=== PATIENT | female | born 1965 | race Caucasian/White ===

== ENCOUNTER → 2017-03-12 | Outpatient (CLI) | payer BC, MEDICARE ==
[~2017-03-12] MED LIST: ISOVUE-300 61% 50ML VIAL (Q9967) As Ordered; MIDAZOLAM INJ 2 MG/2 ML VIAL (J2250) As Ordered; fentaNYL 100 MCG/2 ML INJECTION (J3010) As Ordered
== END | disposition home or self-care (01) ==
LOC: M IRPRO 13:49
DX: T82.858A Stenosis of other vascular prosthetic devices, implants and grafts, initial encounter (principal); T82.838A Hemorrhage due to vascular prosthetic devices, implants and grafts, initial encounter; N18.9 Chronic kidney disease, unspecified; Z99.2 Dependence on renal dialysis
CPT/HCPCS: 36902

== ENCOUNTER → 2017-04-02 | Outpatient (CLI) | payer BC, MEDICARE | END | disposition home or self-care (01) | LOC: M IRPRO 07:03 | DX: T82.858A Stenosis of other vascular prosthetic devices, implants and grafts, initial encounter (principal); S40.851A Superficial foreign body of right upper arm, initial encounter; I12.0 Hypertensive chronic kidney disease with stage 5 chronic kidney disease or end stage renal disease; N18.6 End stage renal disease; Z99.2 Dependence on renal dialysis; Z45.2 Encounter for adjustment and management of vascular access device | CPT/HCPCS: 36902 ==

== ENCOUNTER 2017-04-03 06:38 | Emergency (ER) | payer BC, MEDICARE | END 2017-04-03 07:50 | disposition home or self-care (01) | LOC: M ED 06:38 | DX: T82.838A Hemorrhage due to vascular prosthetic devices, implants and grafts, initial encounter (principal); X58.XXXA Exposure to other specified factors, initial encounter; Y92.89 Other specified places as the place of occurrence of the external cause; N28.9 Disorder of kidney and ureter, unspecified; Z99.2 Dependence on renal dialysis; Z79.01 Long term (current) use of anticoagulants; Z88.8 Allergy status to other drugs, medicaments and biological substances | CPT/HCPCS: 99284 ==

== ENCOUNTER → 2017-06-09 | Outpatient (CLI) | payer BC, MEDICARE | END | disposition home or self-care (01) | LOC: M IRPRO 11:18 | DX: T82.858A Stenosis of other vascular prosthetic devices, implants and grafts, initial encounter (principal); N18.6 End stage renal disease; Z99.2 Dependence on renal dialysis | CPT/HCPCS: 36902 ==

== ENCOUNTER → 2017-06-23 | Outpatient (CLI) | payer BC, MEDICARE ==
[~2017-06-23] MED LIST changes: +ALTEPLASE 2 MG/2 ML VIAL (J2997 PER 1MG) As Ordered; +HEPARIN 1,000 UNITS/ML 10ML VIAL (FOR RADIOLOGY& DIALYSIS ONLY) As Ordered
== END | disposition home or self-care (01) ==
LOC: M IRPRO 07:43
DX: T82.868A Thrombosis due to vascular prosthetic devices, implants and grafts, initial encounter (principal); T82.858A Stenosis of other vascular prosthetic devices, implants and grafts, initial encounter; N18.6 End stage renal disease; Z99.2 Dependence on renal dialysis
CPT/HCPCS: 36906

== ENCOUNTER 2017-09-20 09:25 | Inpatient (IN) | payer BC, MEDICARE ==
[2017-09-20] MEDS: LISSAMINE GREEN OPHTH 1.5 MG STRIP OD (10:15)
[2017-09-20] MEDS: TETRACAINE 0.5% OPHTH SOLN 4ML OD (10:15)
[2017-09-20 10:42] LABS: BASO % 0.6 % (0.0-1.0); EOS % 1.3 % (0.0-3.0); HEMATOCRIT 34.8 % (36.0-47.0); HEMOGLOBIN 11.7 g/dl (12.0-15.5); IMMATURE GRANULOCYTE % 0.3 % (0-3.0); LYMPH # 0.8 10^3/uL (1.5-4.5); LYMPH % 26.5 % (24.0-44.0); MEAN CORPUSCULAR HEMOGLOBIN 34.5 pg (27.0-33.0); MEAN CORPUSCULAR HGB CONC 33.6 g/dl (32.0-36.5); MEAN CORPUSCULAR VOLUME 102.7 fl (80.0-96.0); MONO # 0.4 10^3/uL (0.0-0.8); MONO % 12.6 % (0.0-5.0); NEUTROPHILS # 1.9 10^3/uL (1.8-7.7); NEUTROPHILS % 58.7 % (36.0-66.0); PLATELET COUNT, AUTOMATED 168 10^3/uL (150-450); RED BLOOD COUNT 3.39 10^6/uL (4.00-5.40); RED CELL DISTRIBUTION WIDTH 12.8 % (11.5-14.5); WHITE BLOOD COUNT 3.2 10^3/uL (4.0-10.0)
[2017-09-20] MEDS ORDERED: ISOVUE-370 76% 100ML VIAL (Q9967) As Ordered (10:55)
[2017-09-20 10:59] LABS: ERYTHROCYTE SEDIMENTATION RATE 43 mm/hr (0-30)
[2017-09-20 11:33] LABS: LACTIC ACID SEPSIS PROTOCOL 0.7 MMOL/L (0.4-2.0)
[2017-09-20 11:33] LABS: ALBUMIN 3.3 GM/DL (3.2-5.2); ALKALINE PHOSPHATASE 84 U/L (45-117); ALT/SGPT 21 U/L (12-78); ANION GAP 11 MEQ/L (8-16); AST/SGOT 15 U/L (7-37); BILIRUBIN,DIRECT 0.1 MG/DL (0.0-0.2); BILIRUBIN,TOTAL 0.6 MG/DL (0.2-1.0); BLOOD UREA NITROGEN 52 MG/DL (7-18); C REACTIVE PROTEIN QUANTITATIV 0.69 MG/DL (0.00-0.30); CALCIUM LEVEL 8.5 MG/DL (8.5-10.1); CARBON DIOXIDE LEVEL 24 MEQ/L (21-32); CHLORIDE LEVEL 106 MEQ/L (98-107); GLOMERULAR FILTRATION RATE 8.2 (>51); GLUCOSE, FASTING 87 MG/DL (70-100); POTASSIUM SERUM 4.1 MEQ/L (3.5-5.1); SODIUM LEVEL 141 MEQ/L (136-145); TOTAL PROTEIN 6.6 GM/DL (6.4-8.2)
[2017-09-20] MEDS: ACETAMINOPHEN TAB 650MG DOSE (2X325MG) PO (12:55)
[2017-09-20] MEDS: methylPREDNISolone INJ 125 MG/2 ML VIAL (J2930) IV (13:47)
[2017-09-20] MEDS ORDERED: ONDANSETRON 4MG/2ML VIAL (J2405) IV (15:15)
[2017-09-20] MEDS ORDERED: ALBUTEROL 90 MCG/ACT 8GM HFA INHALER INH (15:30)
[2017-09-20] MEDS ORDERED: IPRATROPIUM 0.5MG/ALBUTEROL 2.5MG INH SOL UD 3ML (DUONEB)(J7620) NEB (15:45)
[2017-09-20] MEDS: ERYTHROMYCIN OPHTH OINT OD ×2 (16:21→21:56)
[2017-09-20] MEDS: WARFARIN SOD 5 MG TAB PO (17:00)
[2017-09-20] MEDS: LANTHANUM CARBONATE 500 MG CHEW TABLET PO (18:03)
[2017-09-20] MEDS: (RENVELA) SEVELAMER **CARBONate** 800 MG TAB PO (18:55)
[2017-09-20] MEDS: valACYclovir HCL 500 MG TAB PO (20:54)
[2017-09-21] MEDS: methylPREDNISolone INJ 125 MG/2 ML VIAL (J2930) IV ×2 (02:27→17:11)
[2017-09-21 06:27] LABS: HEMOGLOBIN 11.8 g/dl (12.0-15.5); MEAN CORPUSCULAR HGB CONC 32.8 g/dl (32.0-36.5); MEAN CORPUSCULAR VOLUME 103.7 fl (80.0-96.0); PLATELET COUNT, AUTOMATED 189 10^3/uL (150-450); RED BLOOD COUNT 3.47 10^6/uL (4.00-5.40); RED CELL DISTRIBUTION WIDTH 12.8 % (11.5-14.5); WHITE BLOOD COUNT 3.1 10^3/uL (4.0-10.0)
[2017-09-21] MEDS: LANTHANUM CARBONATE 500 MG CHEW TABLET PO ×3 (06:38→17:11)
[2017-09-21] MEDS: MONTELUKAST 10 MG TAB PO (06:38)
[2017-09-21] MEDS: MULTIVITAMINS/MINERALS THERAP 1 TAB PO (06:38)
[2017-09-21] MEDS: ERYTHROMYCIN OPHTH OINT OD ×3 (06:38→20:24)
[2017-09-21] MEDS: (RENVELA) SEVELAMER **CARBONate** 800 MG TAB PO ×3 (06:38→17:11)
[2017-09-21] MEDS: FERROUS SULFATE 325MG TAB PO (06:38)
[2017-09-21] MEDS: ACETAMINOPHEN TAB 650MG DOSE (2X325MG) PO (06:38)
[2017-09-21 06:44] LABS: INR 2.27; PROTHROMBIN TIME 25.5 SECONDS (12.1-14.4)
[2017-09-21 06:51] LABS: ANION GAP 13 MEQ/L (8-16); BLOOD UREA NITROGEN 67 MG/DL (7-18); CALCIUM LEVEL 8.2 MG/DL (8.5-10.1); CARBON DIOXIDE LEVEL 20 MEQ/L (21-32); CHLORIDE LEVEL 104 MEQ/L (98-107); CREATININE FOR GFR 6.38 MG/DL (0.55-1.30); GLOMERULAR FILTRATION RATE 7.3 (>51); GLUCOSE, FASTING 115 MG/DL (70-100); POTASSIUM SERUM 5.1 MEQ/L (3.5-5.1); SODIUM LEVEL 137 MEQ/L (136-145)
[2017-09-21] MEDS: PERCOCET 5MG/325MG TAB PO (08:02)
[2017-09-21] MEDS: GABAPENTIN 100 MG CAP PO (10:46)
[2017-09-21] MEDS: WARFARIN SOD 5 MG TAB PO (17:11)
[2017-09-21] MEDS: valACYclovir HCL 500 MG TAB PO (20:24)
[2017-09-22] MEDS: methylPREDNISolone INJ 125 MG/2 ML VIAL (J2930) IV (01:40)
[2017-09-22] MEDS: ACETAMINOPHEN TAB 650MG DOSE (2X325MG) PO (01:42)
[2017-09-22 06:32] LABS: HEMATOCRIT 33.9 % (36.0-47.0); HEMOGLOBIN 11.5 g/dl (12.0-15.5); MEAN CORPUSCULAR HEMOGLOBIN 34.3 pg (27.0-33.0); MEAN CORPUSCULAR HGB CONC 33.9 g/dl (32.0-36.5); MEAN CORPUSCULAR VOLUME 101.2 fl (80.0-96.0); PLATELET COUNT, AUTOMATED 193 10^3/uL (150-450); RED BLOOD COUNT 3.35 10^6/uL (4.00-5.40); WHITE BLOOD COUNT 4.7 10^3/uL (4.0-10.0)
[2017-09-22 06:47] LABS: ANION GAP 9 MEQ/L (8-16); BLOOD UREA NITROGEN 49 MG/DL (7-18); CALCIUM LEVEL 8.3 MG/DL (8.5-10.1); CARBON DIOXIDE LEVEL 28 MEQ/L (21-32); CHLORIDE LEVEL 103 MEQ/L (98-107); CREATININE FOR GFR 5.24 MG/DL (0.55-1.30); GLOMERULAR FILTRATION RATE 9.2 (>51); GLUCOSE, FASTING 139 MG/DL (70-100); POTASSIUM SERUM 4.4 MEQ/L (3.5-5.1); SODIUM LEVEL 140 MEQ/L (136-145)
[2017-09-22 06:52] LABS: INR 2.37; PROTHROMBIN TIME 26.3 SECONDS (12.1-14.4)
[2017-09-22] MEDS: LANTHANUM CARBONATE 500 MG CHEW TABLET PO ×2 (08:40→13:02)
[2017-09-22] MEDS: FERROUS SULFATE 325MG TAB PO (08:40)
[2017-09-22] MEDS: (RENVELA) SEVELAMER **CARBONate** 800 MG TAB PO ×2 (08:40→13:02)
[2017-09-22] MEDS: MULTIVITAMINS/MINERALS THERAP 1 TAB PO (08:41)
[2017-09-22] MEDS: ERYTHROMYCIN OPHTH OINT OD (08:41)
[2017-09-22] MEDS: GABAPENTIN 100 MG CAP PO (08:41)
[2017-09-22] MEDS: MONTELUKAST 10 MG TAB PO (08:41)
[2017-09-22] MEDS ORDERED: ISOVUE-300 61% 50ML VIAL (Q9967) (10:58)
[2017-09-22] MEDS ORDERED: WARFARIN SOD 2.5 MG TAB PO (17:00)
== END 2017-09-22 14:05 | disposition home or self-care (01) | DRG 80 ==
LOC: M ED 09:25 → M ED INP 15:13 → M MSPAV 17:29
PROC: 5A1D70Z Performance of Urinary Filtration, Intermittent, Less than 6 Hours Per Day (ICD-10-PCS; principal; 2017-09-21)
PROC: B31H1ZZ Fluoroscopy of Right Upper Extremity Arteries using Low Osmolar Contrast (ICD-10-PCS; 2017-09-22)
DX: B02.30 Zoster ocular disease, unspecified (principal); M31.31 Wegener's granulomatosis with renal involvement; N25.81 Secondary hyperparathyroidism of renal origin; N18.6 End stage renal disease; J45.909 Unspecified asthma, uncomplicated; R01.1 Cardiac murmur, unspecified; T45.515A Adverse effect of anticoagulants, initial encounter; D63.1 Anemia in chronic kidney disease; D50.9 Iron deficiency anemia, unspecified; Z99.2 Dependence on renal dialysis; Z95.828 Presence of other vascular implants and grafts; Z79.01 Long term (current) use of anticoagulants; Z79.51 Long term (current) use of inhaled steroids; Z79.899 Other long term (current) drug therapy; Z91.040 Latex allergy status; Z88.5 Allergy status to narcotic agent; Z90.710 Acquired absence of both cervix and uterus

== ENCOUNTER → 2017-09-22 | Outpatient (CLI) | payer BC, MEDICARE ==
[~2017-09-22] MED LIST changes: -ALTEPLASE 2 MG/2 ML VIAL (J2997 PER 1MG) As Ordered; -HEPARIN 1,000 UNITS/ML 10ML VIAL (FOR RADIOLOGY& DIALYSIS ONLY) As Ordered; -MIDAZOLAM INJ 2 MG/2 ML VIAL (J2250) As Ordered; -fentaNYL 100 MCG/2 ML INJECTION (J3010) As Ordered
== END ==
LOC: M IRPRO 08:30
DX: Z53.8 Procedure and treatment not carried out for other reasons (principal)

== ENCOUNTER → 2017-12-30 | Outpatient (CLI) | payer BC, MEDICARE ==
[~2017-12-30] MED LIST changes: +LIDOCAINE 2% MDV 20 ML VIAL As Ordered; +MIDAZOLAM INJ 2 MG/2 ML VIAL (J2250) As Ordered; +fentaNYL 100 MCG/2 ML INJECTION (J3010) As Ordered
== END | disposition home or self-care (01) ==
LOC: M IRPRO 09:00
DX: T82.858A Stenosis of other vascular prosthetic devices, implants and grafts, initial encounter (principal); N18.6 End stage renal disease
CPT/HCPCS: 36902

== ENCOUNTER → 2018-04-01 | Outpatient (CLI) | payer BC, MEDICARE ==
[~2018-04-01] MED LIST changes: +ACYC800T PO; +ADV250INH INH; +BIMA01SOL OU; +COUM1TAB17 PO; +COUM2.5T17 PO; +DIAL800T PO; +ERYT5OPO OD; +FOSR1000 PO; +GABA-1171 PO; +IRON27TA2 PO; +IRON65TA PO; -ISOVUE-300 61% 50ML VIAL (Q9967) As Ordered; +ISOVUE-300 61% 50ML VIAL (Q9967) As Ordered ONE; -LIDOCAINE 2% MDV 20 ML VIAL As Ordered; +LIDOCAINE 2% MDV 20 ML VIAL As Ordered ONE; -MIDAZOLAM INJ 2 MG/2 ML VIAL (J2250) As Ordered; +MIDAZOLAM INJ 2 MG/2 ML VIAL (J2250) As Ordered ONE; +PRED10TA2 PO; +RENV2TAB PO; +SING10TA32 PO; +VALA500T5 PO; +VENTAER INH; -fentaNYL 100 MCG/2 ML INJECTION (J3010) As Ordered; +fentaNYL 100 MCG/2 ML INJECTION (J3010) As Ordered ONE
--- NOTE | 2018-04-28 10:41 | REPIR ---
DATE OF PROCEDURE: 04/01/2018 ATTENDING PHYSICIAN: Marla Salter MD ASSISTANTS: Uzair Mccoy and Conchita Huang PREOPERATIVE DIAGNOSES: End-stage renal disease, dysfunctional right brachial artery to axillary vein arteriovenous graft. POSTOPERATIVE DIAGNOSES: End-stage renal disease, dysfunctional right brachial artery to axillary vein arteriovenous graft. PROCEDURES: Right brachial artery to axillary vein arteriovenous graft fistulogram, retrograde right brachial artery angiogram, right brachial artery to axillary vein arteriovenous graft angioplasty with 8 x 200 balloon, right axillary vein angioplasty with 8 x 20 balloon. INDICATION: The patient is a 53-year-old female with end-stage renal disease who underwent creation of a right brachial artery to axillary vein arteriovenous graft which has had difficulty with maintaining patency and recurrent stenosis requiring angioplasty and stenting of the axillary vein. The patient now follows up with pulsatility within the arteriovenous graft and requires an evaluation. The patient will undergo a fistulogram with possible angioplasty, stent, and/or atherectomy. Risks, benefits, and alternative options were discussed with the patient. ANESTHESIA: Local with sedation with 1 mg of Versed, 50 mcg of fentanyl, and 2 mL of 2% lidocaine. FLUORO TIME: 0.6 minutes. CONTRAST: 6 mL of Isovue 300. HEPARIN: None. COMPLICATIONS: None. DRAINS: None. SPECIMENS: None. IMPLANTS: None. DESCRIPTION OF PROCEDURE: The patient was taken to the angiography suite, placed supine on the angiography room table, and the right upper extremity was prepped and draped in a standard surgical fashion. The arteriovenous graft was cannulated with a micropuncture needle after anesthetizing the overlying skin with 2% lidocaine. A micropuncture wire was advanced through the micropuncture needle which was upsized to a micropuncture sheath. A Bentson wire was advanced through the micropuncture sheath which was upsized to a 6-Australian sheath. A fistulogram was performed showing stenosis in the graft to axillary vein anastomosis, as well as along the course of the axillary vein. The axillary vein and the graft were angioplastied with an 8 x 200 balloon. A retrograde brachial artery angiogram was performed during inflation of the balloon showing no intervention required proximally, at the arterial to graft anastomosis. A completion fistulogram was performed after angioplasty with the 8 x 200 balloon showing resolution of the stenosis, and there was also hindu of a thrill to the fistula. Catheters and wires were removed. The sheath was removed, and a 2-0 Prolene suture was placed at the puncture site for hemostasis. Dressings were then applied. The patient tolerated the procedure well. All instrument, sponge, and needle counts were correct at the end the case. There were no complications. Dr. Salter was present for and directed the entire case. The patient was transferred to the holding area and subsequently discharged in stable condition. The arteriovenous graft is stable for use for hemodialysis access.
== END | disposition home or self-care (01) ==
LOC: M IRPRO 07:54
PROVIDERS: ATTEND Surgery Vascular Surgery
DX: T82.858A Stenosis of other vascular prosthetic devices, implants and grafts, initial encounter (principal); N18.6 End stage renal disease; Z99.2 Dependence on renal dialysis
CPT/HCPCS: 36902; C1725; C1769; C1894; J2250; J3010; Q9967

== ENCOUNTER → 2018-06-22 | Outpatient (CLI) | payer BC, MEDICARE ==
[~2018-06-22] MED LIST changes: +BUPIVACAINE HCL 0.5% 10 ML VIAL As Ordered ONE; +ERYT1OIN26 OD; -ERYT5OPO OD; +ISOVUE-300 61% 100ML VIAL (Q9967) As Ordered ONE; -ISOVUE-300 61% 50ML VIAL (Q9967) As Ordered ONE; +diphenhydrAMINE INJ 50MG/ML VIAL (J1200) As Ordered ONE
--- NOTE | 2018-07-07 10:37 | REPIR ---
DATE OF PROCEDURE: 06/22/2018 PREOPERATIVE DIAGNOSES: End-stage renal disease, dysfunctional right brachial artery to axillary vein arteriovenous graft. POSTOPERATIVE DIAGNOSES: End-stage renal disease, dysfunctional right brachial artery to axillary vein arteriovenous graft. PROCEDURE: Right brachial artery to axillary vein arteriovenous graft fistulogram, right graft and axillary vein angioplasty with 8 x 100 balloon. SURGEON: Dr. Marla Salter. LAUNDRY MARKER SUPERVISOR: Ritu Hughes and Conchita Huang ANESTHESIA: Local with sedation. FLUORO TIME: 0.5 minutes. CONTRAST: 144 mL COMPLICATIONS: None. DRAINS: None. SPECIMENS: None IMPLANTS: None. INDICATION: The patient is a 53-year-old female who dialyzes through a right arm AV graft which has had difficulty with occlusion as well as high grade stenosis in the graft to axillary vein anastomosis as well as in the axillary vein. The patient will undergo a fistulogram with possible angioplasty, stent and/or atherectomy. Risks, benefits and alternative options were discussed with the patient. DESCRIPTION OF PROCEDURE: The patient was taken to the angiography suite, placed supine on the angiography room table and the right upper extremity was prepped and draped in a standard surgical fashion. The fistula was cannulated and a fistulogram performed showing high grade stenosis in the graft to axillary vein anastomosis as well as in the axillary vein subclavian vein junction. The graft in the subclavian vein were angioplasty with an 8 x 100 balloon. A completion fistulogram showed resolution of the stenosis with excellent flow through the graft into the central venous system. No residual stenosis remaining. Catheters and wires were removed. The sheath was removed and a #2-0 Prolene suture was placed at the puncture site for hemostasis. Dressings then applied. The patient tolerated procedure well. All instrument, sponge and needle counts were correct at the end of the case. There were no complications. Dr. Salter was present for and directed the entire case. The patient was transferred to the holding area and subsequent discharged in stable condition.
== END | disposition home or self-care (01) ==
LOC: M IRPRO 09:19
PROVIDERS: ATTEND Surgery Vascular Surgery
DX: T82.858A Stenosis of other vascular prosthetic devices, implants and grafts, initial encounter (principal); N18.6 End stage renal disease; Z99.2 Dependence on renal dialysis
CPT/HCPCS: 36902; 36907; C1725; C1769; C1894; J1200; J2250; J3010; Q9967

== ENCOUNTER → 2018-09-21 | Outpatient (CLI) | payer BC, MEDICARE ==
[~2018-09-21] MED LIST changes: -ISOVUE-300 61% 100ML VIAL (Q9967) As Ordered ONE; +ISOVUE-300 61% 50ML VIAL (Q9967) As Ordered ONE; +WARF-18 PO
[2018-09-21 10:31] VITALS: BP_DIAS 63
--- NOTE | 2018-10-14 10:39 | REPIR ---
DATE OF PROCEDURE: 09/21/2018 ATTENDING SURGEON: Dr. Marla Salter BATCH MIXING TRUCK DRIVER: Ritu Hughes and Gaetano Mccoy PREOPERATIVE DIAGNOSIS: End-stage renal disease, dysfunctional right brachial artery to axillary vein arteriovenous graft. POSTOPERATIVE DIAGNOSIS: End-stage renal disease, dysfunctional right brachial artery to axillary vein arteriovenous graft. PROCEDURE: Right brachial artery to axillary vein arteriovenous fistulogram, retrograde right brachial artery angiogram, right brachial artery to axillary vein arteriovenous graft angioplasty with 8x200 balloon, right axillary vein angioplasty with 8x200 balloon. INDICATION: The patient is a 53-year-old female who underwent creation of a right brachial artery to axillary vein arteriovenous graft which has had difficulty with multiple episodes of thrombosis requiring thrombolysis and subsequent angioplasty and stenting of the axillary vein. The patient now follows up with pulsatility within the arteriovenous graft as well as excessive bleeding on decannulation. The patient will undergo a fistulogram with possible angioplasty stent and/or atherectomy. ANESTHESIA: Local with sedation with 2 mg of Versed, 50 mcg fentanyl and 3 mL of 2% lidocaine mixed with 0.5% Marcaine, Benadryl 50 mg. FLUORO TIME: 0.2 minutes. CONTRAST: 2 mL. SEDATION TIME: 10:01 a.m. to 10:17 a.m. for a total of 16 minutes. COMPLICATIONS: None. DRAINS: None. SPECIMENS: None. IMPLANTS: None. DESCRIPTION OF PROCEDURE: The patient was taken to the angiography suite, placed supine on the angiography table and then prepped and draped in a standard surgical fashion. The right brachial artery to axillary vein arteriovenous graft was cannulated with a micropuncture needle after anesthetizing the overlying skin and subcutaneous tissue was local anesthesia. A fistulogram was performed showing high grade stenosis in the axillary vein proximal to the previously stented region. There was also stenosis at the graft and axillary vein anastomosis. Both these were angioplastied with 8x200 balloon. A completion fistulogram showed resolution of the stenosis with mandaen of a thrill to the arteriovenous graft. A retrograde right brachial artery angiogram was performed during inflation of the 8x200 balloon showing the graft to be patent to the brachial artery. There was no stenosis at the graft and brachial artery anastomosis and there was good flow in the brachial artery proximal and distal to the graft and brachial artery anastomosis. Catheters and wires were removed. The sheath was removed and a 2-0 Prolene suture was placed at the puncture site for hemostasis. Dressings were then applied. The patient tolerated the procedure well. All instrument, sponge and needle counts were correct at the end the case. There were no complications. Dr. Salter was present for and directed the entire case. The patient was transferred to the holding area and subsequently discharged in stable condition once a the 2-0 Prolene suture was removed and good hemostasis was noted.
== END ==
LOC: M IRPRO 09:11
PROVIDERS: ATTEND Surgery Vascular Surgery
DX: N18.6 End stage renal disease (principal); T82.898A Other specified complication of vascular prosthetic devices, implants and grafts, initial encounter; J45.909 Unspecified asthma, uncomplicated; D50.9 Iron deficiency anemia, unspecified; H40.9 Unspecified glaucoma; X58.XXXA Exposure to other specified factors, initial encounter; Y93.9 Activity, unspecified; Y92.9 Unspecified place or not applicable; Y99.9 Unspecified external cause status
CPT/HCPCS: 36902; 36907; 99152; 99153; C1725; C1769; C1894; J1200; J2250; J3010; Q9967

== ENCOUNTER → 2018-12-31 | Outpatient (CLI) | payer BC, MEDICARE ==
[~2018-12-31] MED LIST changes: -BUPIVACAINE HCL 0.5% 10 ML VIAL As Ordered ONE; +LIDOCAINE 1% MDV 20ML VIAL As Ordered ONE; -LIDOCAINE 2% MDV 20 ML VIAL As Ordered ONE; -diphenhydrAMINE INJ 50MG/ML VIAL (J1200) As Ordered ONE
--- NOTE | 2018-12-31 14:37 | ROOPDOC ---
[facility] Report Of Operation Report of Operation DATE OF PROCEDURE: 12/31/18 PREPROCEDURE DIAGNOSES: End-stage renal disease on hemodialysis with poor venous flows, pulsatility, and increased bleeding times and infiltrations right upper extremity brachial axillary graft POSTPROCEDURE DIAGNOSES: Same PROCEDURE: 1. Right upper extremity fistulogram and central venogram 2. Angioplasty of the brachial axillary graft and axillary vein with 8 x 200 [place] balloon and 8 by 20 cutting balloon 3. Completion venogram SURGEON: Xavier Colin MD ANESTHESIA: Local anesthesia 10 mL lidocaine. Monitored intravenous conscious sedation was a electrical systems design engineer by Dr. Colin. The patient was independently monitored by a registered nurse assigned to the Department of radiology is automated blood pressure, EKG, and pulse oximetry. The detailed conscious sedation record is probably housed in the hospital information system. The following is a brief sedation record: Start time 13:12,. Time 13:54, Versed 1 mg, fentanyl 75 g. INDICATION FOR PROCEDURE: This is a very pleasant 53-year-old patient with end- stage renal disease on hemodialysis with a right upper extremity AV graft with poor venous flows, pulsatility, increased bleeding times and occasional infiltrations after dialysis. On exam in clinic, she had some focal areas of stenosis noted on ultrasound and pulsatility and some bruising from recent access. We discussed the risks benefits and alternatives to a fistulogram with potential intervention and she was agreeable to proceed. She is hopeful that her sister we imagine she'll be able to get a kidney transplant soon which will be wonderful, but we will try to keep her graft working until then. The patient takes Coumadin due to frequent graft thrombosis so we are also worried about progressive stenosis leading to graft thrombosis and we'll try to get things opened up so she's got better venous outflow and less chance of clotting the graft. She is agreeable to this plan and informed consent was obtained. INTERPRETATION: 1. There is good inflow into the graft is patent in the proximal third, but the distal two thirds have focal areas of stenosis and a previous please stent is also stenosis. The outflow in the axillary vein has a 90% stenosis and distal to that the outflow through to the central system is widely patent. 2. After angioplasty with a by 20 cutting balloon and 8 x 200 [place] balloon, there was widely patent inflow through the AV fistula with less than 10% residual stenosis in any of the focal areas. REPORT OF OPERATION: The patient was brought to the angiographic suite in stable condition and placed supine on the fluoroscopic table. Her right upper extremity was prepped and draped in sterile fashion. A timeout was performed. Local anesth esia was administered to the skin and subcutaneous tissue over the graft proximal to the AV anastomosis and a microneedle was used to access the graft and a wire was passed through this access under fluoroscopic guidance. A micro- sheath was placed and Glidewire was advanced through this into the central system under fluoroscopic guidance. Exchanged the sheath for 6 Cam[place]onian sheath wh ich was flushed with saline. A fistulogram and central venogram were performed. Please see above for interpretation. Next, we advanced an 8 x 200 [place] balloon across the focal areas of stenosis in the graft and the axillary vein. It required a fairly high atmospheric pressure of 14 to open areas of stenosis, and then the balloon was left inflated for 2 minutes at 4 nikhil. Following this, there is still a significant tight stenosis in the axillary vein and within the graft. We exchanged the sheath over the wire for a 7 Cam[place]onian sheath and flushed the sheath was saline. We exchanged the wire for V 18 wire crossed to the central system under fluoroscopic guidance. We advanced an 8 x 20 cutting balloon and used this balloon to angioplasty the areas of residual resistant stenosis. We then replaced the 8 x 200 [place] balloon and did a three-minute inflations at 4 nikhil. Following this, the graft in the outflow were widely patent with less than 10% residual stenosis. There was an excellent thrill and all pulsatility had resolved. The patient tolerated this very well. A stitch was placed at the sheath site and secured with Steri-Strips and pressure was held for 10 minutes for good hemostasis. The patient was taken to recovery in stable condition. ESTIMATED BLOOD LOSS: Approximately 5 mL. COMPLICATIONS: None. PLAN: It is okay to use the AV graft for dialysis. Continue Coumadin. We will see her back in a couple months to check her graft and see how she is doing. XAVIER COLIN MD Dec 31, 2018 14:37
[2018-12-31 14:52] VITALS: BP 116/56
== END ==
LOC: M IRPRO 11:41
PROVIDERS: ATTEND Surgery Vascular Surgery
DX: T82.898A Other specified complication of vascular prosthetic devices, implants and grafts, initial encounter (principal); N18.6 End stage renal disease; X58.XXXA Exposure to other specified factors, initial encounter; Y93.9 Activity, unspecified; Y92.9 Unspecified place or not applicable; Y99.9 Unspecified external cause status
CPT/HCPCS: 36902; 99152; 99153; C1725; C1769; C1894; J2250; J3010; Q9967

== ENCOUNTER → 2019-07-12 | Outpatient (CLI) | payer MEDICARE, BC ==
[~2019-07-12] MED LIST changes: +ALTEPLASE 2MG/2ML VIAL As Ordered ONE; +APIXABAN 2.5 MG TAB (ELIQUIS) PO ONE; +ELIQ2.5T PO; -ERYT1OIN26 OD; +ERYT5OIN25 OD; -ISOVUE-300 61% 50ML VIAL (Q9967) As Ordered ONE; +ISOVUE-300 61% 50ML VIAL As Ordered ONE; -MIDAZOLAM INJ 2 MG/2 ML VIAL (J2250) As Ordered ONE; +MIDAZOLAM INJ 2MG/2ML VIAL (J2250 PER 1MG) As Ordered ONE
--- NOTE | 2019-07-12 15:13 | ROOPDOC ---
[facility] Report Of Operation Report of Operation DATE OF PROCEDURE: 07/12/19 PREPROCEDURE DIAGNOSES: End-stage renal disease with poorly functioning right upper extremity brachial axillary AV graft POSTPROCEDURE DIAGNOSES: Same PROCEDURE: 1. Ultrasound-guided access right brachial axillary graft 2. Right upper extremity fistulogram and central venogram 3. Angioplasty right brachial axillary AV graft and central veins with 8 x 20 cutting balloon and 8 x 200 [place] balloon 4. Attempted Declot left axillary vein with 8 mg tPA and 6 x 40 and 8 x 40 [place] balloons 5. Repeat angioplasty right brachial axillary AV graft and axillary and subclavian veins 6. Completion venogram SURGEON: Xavier Colin MD ANESTHESIA: Local anesthesia with 2 mL lidocaine. Moderate intravenous conscious sedation was supervised by Dr. Colin. The patient was independently monitor by registered nurse assigned to the Department of radiology using automated blood pressure, EKG, and pulse oximetry. Detailed sedation record is permanently stored in the hospital information system. The following is the brief sedation record: Start time 13:11, stop time 14:41, heparin 5000 units IV, tPA 8 mg. CONTRAST: 92 mL Isovue-300 INDICATION FOR PROCEDURE: This is a very pleasant 54-year-old patient with end- stage renal disease currently dialyzing with an AV graft, brachial axillary, pl aced an outside institution. The patient has had frequent restenosis within the graft and at the distal venous anastomosis, as well as in her outflow veins that are required frequent interventions in the past. She has had multiple angioplasties and stenting within her graft in the past by other providers. We last saw her almost 6 months ago for angioplasty to improve her graft flow and outflow. She did well after this, but now returns with increased venous pressures, pulsatility is, and difficulty with access. Risks benefits and alternatives to a fistulogram and attempted intervention were explained to the patient and she is agreeable to proceed. Informed consent was obtained. INTERPRETATION: 1. On ultrasound the AV anastomosis is widely patent with no stenosis in good inflow. 2. The AV graft is heavily stenotic and ectatic, with a stent in the midportion over the biceps that has heavy in-stent restenosis, and just distal to this there is a 90% focal stenosis in the graft. Other aspects of the graft had betw een 20 and 80% stenosis throughout. There is some filling outside the main lumen of the vein just proximal to the anastomosis, proximal to the stent, that may be flow into a valve versus a small chronic pseudoaneurysm. No extraluminal flow is noted. The distal anastomosis is irregular but patent with about 40% stenosis. The axillary vein and subclavian vein has some irregularity to the lumen with a widely patent superior vena cava. It appears that there may be thrombus or luminal irregularity at the venous anastomosis and the axillary vein and subclavian vein, as contrast hangs up in the graft during injection to visualize the central veins. We are then able to flush the contrast through with heparinized saline flush, but it takes a bit of force. This suggests her outflow may have partial thrombosis, may have venous irregularities obstructing flow, but it is unclear from the imaging which it is. 3. After angioplasty with an 8 x 20 cutting balloon, there is marked improvement inflow through the graft. 4. After angioplasty with an 8 x 200 [place] balloon along the entire graft, the outflow tract, the axillary and subclavian veins, and into the SVC, we have a marked improvement inflow through the graft as seen after the cutting balloon, but we still have contrast hanging up in the fistula itself. There is no waist on the balloon with angioplasty of the axillary subclavian veins or the venous anastomosis. 5. After treating that it outflow with 8 mg of TPA and pushing a 6 x 40 and then an 8 x 40 balloon through the outflow to the central system, we do not see improvement in outflow. The contrast still hangs up in the graft and does not easily flow to the central system. However, when we flushed with heparinized saline, the contrast rapidly flows into the central system. 6. At case completion, I am still unsure of the cause of outflow limitation, but I suspect it is luminal irregularity of the vein. Over, it does not seem to be stenosis and does not respond to balloon angioplasty. REPORT OF OPERATION: Patient was brought to the angiographic suite in stable condition. Her right upper extremity was prepped and draped in a sterile fashion. A timeout was performed. Local anesthesia was administered to skin and subcutaneous tissue over the brachial axillary graft near the arterial anastomosis. The AV anastomosis was examined with ultrasound and found to be widely patent. We accessed the graft near the AV anastomosis with a microneedle. A wire was passed through this access and the needle was removed and a 4 Pashto sheath was placed and flushed with saline. Through this access we performed a fistulogram and central venogram. Please interpretation above. A Glidewire was advanced into the SVC under fluoroscopic guidance. We exchanged sheath for 7 Pashto sheath and flushed the sheath with saline. We then removed the Glidewire and placed in 018 advantage Glidewire and over this an 8 x 20 cutting balloon. We angioplastied the length of the graft, and distal to the stent, and the axillary anastomosis. Following this, there was significant improvement inflow through the AV graft in the axillary vein. There was still contrasting up in the graft itself. We then exchange the wire for and 035 Glidewire and advanced in 8 x 200 [place] balloon first across the graft, then across the axillary subclavian veins into the central system. Three-minute inflations were performed. Following this, there is no significant focal residual stenosis noted, but there was still 28-30% diffuse stenosis within the graft, and still contrast tongue up in the graft and not easily traversing to the central system. It was unclear on imaging exactly what was causing this. We were able to flush the contrast with heparinized saline. I try to repeat angioplasty, but little to no difference was noted. Administered 4 mg of TPA and push to 6 x 40 balloon across the axillary and subclavian veins, but no significant difference was noted. We administered another 4 mg of TPA in the area just proximal to the venous anastomosis in the axillary and subclavian vein and then pushed in 8 x 40 balloon over the wire through the area to the central system in case there is any thrombus present. The balloon past very easily without obstruction, but still we did not have significant outflow through the vein. This was very frustrating. We could not identify the source of flow limitation. There did not appear to be any stenosis along the outflow into the superior vena cava, nor into the right atrium. After attempting another angioplasty with 8 x 200 [place] balloon for three-minute inflations, we felt we had given as best of an effort as we could to improve her outflow inflow through the graft. At this point, I felt further intervention would not be fruitful. Local anesthesia was administered around the sheath and a Prolene suture was placed in a [id number] pattern around the sheath and the sheath was removed. Pressure was held for 15 minutes but the patient was still having bleeding. Her graft was pulsatile. Therefore, I placed a different pursestring suture around the access site and removed the Prolene. The pursestring suture was Monocryl and is absorbable. We then held pressure for an another 5 minutes and there was much better hemostasis with no active bleeding. At this point, I checked her arm again, and her graft had a thrill. Perhaps there was some component of spasm, although I did not visualize spasm on her fistulograms. Nevertheless, I was glad to feel a thrill. It is my hope that the graft is salvageable. Sterile dressings were applied and the patient was taken to recovery in stable condition. She tolerated the sedation in the procedure well. ESTIMATED BLOOD LOSS: Approximately 5 mL. COMPLICATIONS: None. PLAN: The patient will go to dialysis tomorrow morning. I've asked her to come back to interventional radiology if she has any problem running with her graft. Unfortunately, I do not have an option to further improve her graft. We did extensive work today and still did not see considerable improvement in outflow. If the graft is not working well, we would like to place a PermCath tomorrow morning and then we will work her up for new access. She will need a vein mapping of the left upper extremity in the right upper extremity. If her graft is working well enough for dialysis, we can hold off on this, but I do think she will need a new access in the near future regardless. Also, the patient's Coumadin is consistently subtherapeutic, and I like to switch her to a renally dosed eliquis at 2.5 mg twice a day. I think this will provide her a more consistent anticoagulation. If any component of outflow is due to thrombus, this will help. It will also better prevent thrombosis of this AV graft, or a new AV graft is been new access is needed. She is agreeable to this plan. We appreciate the opportunity to participate in the care of this patient XAVIER COLIN MD July 12, 2019 15:13
[2019-07-12 16:02] VITALS: BP 155/73
== END ==
LOC: M IRPRO 11:42
PROVIDERS: ATTEND Surgery Vascular Surgery
DX: T82.590A Other mechanical complication of surgically created arteriovenous fistula, initial encounter (principal); N18.6 End stage renal disease; I12.9 Hypertensive chronic kidney disease with stage 1 through stage 4 chronic kidney disease, or unspecified chronic kidney disease; N18.9 Chronic kidney disease, unspecified; J45.909 Unspecified asthma, uncomplicated; X58.XXXA Exposure to other specified factors, initial encounter; Z79.01 Long term (current) use of anticoagulants; Z79.899 Other long term (current) drug therapy; Z88.5 Allergy status to narcotic agent; Z91.040 Latex allergy status; Z99.2 Dependence on renal dialysis
CPT/HCPCS: 36905; 36907; 99152; 99153; C1725; C1729; C1769; C1887; C1894; J1644; J2250; J2997; J3010; Q9967

== ENCOUNTER → 2019-09-08 | Outpatient (CLI) | payer MEDICARE, BC ==
[~2019-09-08] MED LIST changes: -ALTEPLASE 2MG/2ML VIAL As Ordered ONE; -APIXABAN 2.5 MG TAB (ELIQUIS) PO ONE; -ISOVUE-300 61% 50ML VIAL As Ordered ONE; -LIDOCAINE 1% MDV 20ML VIAL As Ordered ONE; -MIDAZOLAM INJ 2MG/2ML VIAL (J2250 PER 1MG) As Ordered ONE; -fentaNYL 100 MCG/2 ML INJECTION (J3010) As Ordered ONE
--- NOTE | 2019-09-08 23:53 | REP ---
BILATERAL UPPER EXTREMITY DUPLEX DOPPLER ARTERIAL AND VENOUS ULTRASOUND FOR AV FISTULA MAPPING: Real-time ultrasound evaluation and duplex Doppler interrogation of bilateral upper extremity arterial and venous systems performed for AV fistula mapping. No tourniquet is utilized on the right as there is an AV fistula in use. AV graft is seen connecting the axillary vein to the brachial artery. The peak systolic velocity in the axillary vein near the anastomosis is 275 cm/s. At the anastomosis, peak systolic velocity is 677.6 cm/s. In the graft near the venous anastomosis, peak systolic velocity is 126.6 cm/s; and near the arterial anastomosis, 269.2 cm/s. At the anastomosis between the graft and brachial artery, peak systolic velocity is 209.8 cm/s; in the brachial artery itself, 108.7 cm/s. This is at the level of the distal humerus. No deep vein thrombosis is seen bilaterally. The right basilic vein measures 3 mm at the level of the humerus and 2 mm throughout the forearm. Median cubital vein measures 2 mm. Right cephalic vein measures 3 mm at the upper humerus, 2 mm at the lower humerus and upper forearm, and 1 mm in the lower forearm. Normal flow velocities are seen in the right upper extremity arterial system with mild phasic waveforms in the axillary and brachial arteries and triphasic waveforms in the radial and ulnar arteries. Right axillary artery measures 6 mm, as does the brachial artery. Right radial artery measures 1 mm and ulna artery 2 mm. On the left, the basilic vein measures 5 mm at the upper humerus, 3 mm at the lower humerus, 2 mm in the upper forearm, and 1 mm in the lower forearm. Median cubital vein measures 4 mm. Left cephalic vein measures 2 mm at the upper humerus, 1 mm at the lower humerus, and 2 mm throughout the forearm. Peak systolic velocities of the left upper extremity arterial system are normal with triphasic waveforms. Left axillary artery measures 6 mm, brachial artery 3 mm, radial artery 1 mm, and ulna artery 2 mm. Electronically Signed by Tye Jung MD 09/11/2019 10:39 P
== END ==
LOC: M RAD 12:42
PROVIDERS: ATTEND Physician Assistant
DX: Z01.818 Encounter for other preprocedural examination (principal); N18.6 End stage renal disease; Z99.2 Dependence on renal dialysis; Z79.01 Long term (current) use of anticoagulants

== ENCOUNTER → 2019-10-28 | Outpatient (CLI) | payer MEDICARE, BC ==
[2019-10-28 10:04] LABS: ABG pH (ARTERIAL) 7.372 UNITS (7.350-7.450)
[2019-10-28 10:05] LABS: ABG BASE EXCESS -5.4 (-2.0-2.0); ABG HCO3 19.2 MEQ/L (22.0-26.0); ABG O2 SATURATION 99.3 % (95.0-99.0); ABG PARTIAL PRESSURE CO2 33.8 mmHg (35.0-45.0); ABG PARTIAL PRESSURE O2 151.5 mmHg (75.0-100.0); ABG TOTAL CO2 20.2 MEQ/L (22.0-29.0)
== END ==
LOC: M LAB 09:02
PROVIDERS: ATTEND Internal Medicine Pulmonary Disease
DX: R06.00 Dyspnea, unspecified (principal)

== ENCOUNTER → 2019-11-17 | Outpatient (CLI) | payer MEDICARE, BC ==
[2019-11-17 09:28] LABS: ABG HCO3 20.6 MEQ/L (22.0-26.0); ABG O2 SATURATION 96.9 % (95.0-99.0); ABG PARTIAL PRESSURE CO2 35.5 mmHg (35.0-45.0); ABG PARTIAL PRESSURE O2 100.6 mmHg (75.0-100.0); ABG STANDARD HCO3 21.2 MEQ/L (22.0-26.0); ABG TOTAL CO2 21.7 MEQ/L (22.0-29.0); ABG pH (ARTERIAL) 7.381 UNITS (7.350-7.450); CARBOXYHEMOGLOBIN 1.3 % (0.0-1.5); HGB O2 SAT 96.9 % (95.0-99.0); METHEMOGLOBIN 0.4 % (0.0-2.0); OXY HEMOGLOBIN 95.3 % (94.0-100.0); TOTAL HEMOGLOBIN 10.8 g/dl (12.0-18.0)
--- NOTE | 2019-11-17 09:47 | PFTRPT ---
Visit Date: 11/17/2019 Second ID: [id number] Referring Doctor: Ge Stevenson D.O. Height: 62.50 Inches Weight: 136.00 Lbs BSA: 1.63 Diagnosis: R06.00 TECHNIQUE: Pre- and post-bronchodilator study of excellent technical quality. FINDINGS: Forced vital capacity is reduced. FEV1 is in proportion of obstructive index; therefore, normal. Expiratory limit within the flow-volume loop is normal. No significant bronchodilator response is identified. Total lung capacity mildly reduced. . Residual volume is in proportion. Diffusing capacity, although reduced, is appropriate for alveolar volume. Hemoglobin is reduced at 10.8. Airway resistance and conductance are normal. IMPRESSION: Mild restrictive ventilatory impairment with concomitant anemia. Please correlate clinically. MTDD
[2019-11-18 07:39] LABS: SOURCE ARTERIAL GAS
== END ==
LOC: M CARPUL 08:50
PROVIDERS: ATTEND Internal Medicine Pulmonary Disease
DX: R06.00 Dyspnea, unspecified (principal)

== ENCOUNTER → 2020-05-23 | Outpatient (REF) | payer MEDICARE, BC | LOC: M LAB REF 17:09 | PROVIDERS: ATTEND Nurse Practitioner Family | DX: Z94.0 Kidney transplant status (principal) ==

== ENCOUNTER → 2023-08-07 | Outpatient (REF) | payer MEDICARE ==
[~2023-08-07] MED LIST changes: +ACYC1TAB4 PO; -ACYC800T PO; +MONT-5 PO; -SING10TA32 PO
== END ==
LOC: M LAB REF 17:06
PROVIDERS: ATTEND Nurse Practitioner Family
DX: N39.0 Urinary tract infection, site not specified (principal); Z94.0 Kidney transplant status; N18.2 Chronic kidney disease, stage 2 (mild)

== ENCOUNTER → 2023-11-11 | Outpatient (REF) | payer MEDICARE ==
[2023-11-11 18:38] LABS: BILIRUBIN,DIRECT 0.3 MG/DL (<0.4); BILIRUBIN,TOTAL 1.1 MG/DL (0.3-1.2); TOTAL PROTEIN 6.6 G/DL (5.7-8.2)
== END ==
LOC: M LAB REF 17:28
PROVIDERS: ATTEND Nurse Practitioner Family
DX: N18.2 Chronic kidney disease, stage 2 (mild) (principal)

== ENCOUNTER → 2024-02-10 | Outpatient (REF) | payer MEDICARE ==
[~2024-02-10] MED LIST changes: -ADV250INH INH; +ADVA1AER9 INH
[2024-02-10 18:42] LABS: APPEARANCE, URINE HAZY (CLEAR); BACTERIA, URINE AUTO NEGATIVE (NEGATIVE); BILIRUBIN, URINE AUTO NEGATIVE (NEGATIVE); BLOOD, URINE BLOOD NEGATIVE (NEGATIVE); COLOR, URINE AMBER (YELLOW); GLUCOSE, URINE (UA) AUTO NEGATIVE (NEGATIVE); KETONE, URINE AUTO TRACE mg/dL (NEGATIVE); LEUKOCYTE ESTERASE, URINE AUTO NEGATIVE (NEGATIVE); MUCUS, URINE SMALL (NEGATIVE); NITRITE, URINE AUTO NEGATIVE (NEGATIVE); PROTEIN, URINE AUTO NEGATIVE (NEGATIVE); RBC, URINE AUTO 0 /HPF (0-3); SPECIFIC GRAVITY URINE AUTO 1.024 (1.002-1.035); SQUAMOUS EPITHELIAL CELL UR AU 0 /HPF (0-6); UROBILINOGEN, URINE AUTO 0.2 mg/dL (0.0-2.0); WBC, URINE AUTO 1 /HPF (0-3)
== END ==
LOC: M LAB REF 17:18
PROVIDERS: ATTEND Nurse Practitioner Family
DX: N39.0 Urinary tract infection, site not specified (principal)